=== PATIENT | female | born 1965 | race Caucasian/White ===

== ENCOUNTER 2017-12-17 15:09 | Emergency (ER) | END 2017-12-17 17:08 | disposition home or self-care (01) ==

== ENCOUNTER → 2018-02-26 | Emergency (ER) | payer SELFPAY ==
[~2018-02-26] VITALS: Ht 160 cm; Wt 78.2 kg
[~2018-02-26] MED LIST: D-ME118S24 PO; IBUP-1542 PO; IBUP-1561 PO; KETOROLAC 30 MG INJ IM STA; ONDANSETRON (ODT) 4 MG TAB ODT STA; OSLT75C PO; TYL500 PO
[2018-02-26 15:25] VITALS: BP 168/85; PULSE 98; RESP 18; Ht 160 cm; Wt 78.2 kg
--- NOTE | 2018-02-26 17:54 | ERD ---
ER Documentation Chief Complaint Chief Complaint cough, CWP, congestion, N/V X 4 days HPI 52-year-old female presents for cough, congestion, nausea, vomiting times 4 days. Patient states she vomited couple times. She states that the fever was subjective. The cough is noted to be dry. She tried NyQuil at home without relief. She also admits to some nasal congestion. No other modifying factors noted. ROS All systems reviewed and are negative except as per history of present illness. Medications Home Meds Active Scripts Acetaminophen* (Tylenol*) 500 Mg Tab, 500 MG PO Q4H PRN for MILD PAIN LEVEL 1-3, #30 TAB Prov:PEDRO PABLO RICARDO DO 02/26/18 Ibuprofen* (Motrin*) 600 Mg Tab, 600 MG PO Q6H PRN for PAIN AND OR ELEVATED TEMP, #30 TAB Prov:PEDRO PABLO RICARDO DO 02/26/18 D-Methorphan Hb/P-Epd HCl/Bpm (Swdssmydlm-Mhyllcpmtbs-Id Syr) 118 Ml Syrup, 5 ML PO Q4H PRN for COUGH, #1 BOTTLE Prov:PEDRO PABLO RICARDO 02/26/18 Oseltamivir Phosphate* (Tamiflu*) 75 Mg Capsule, 75 MG PO BID for flu for 5 Days, #10 CAP Prov:PEDRO PABLO RICARDO 02/26/18 Ibuprofen* (Motrin*) 400 Mg Tab, 400 MG PO Q6, #30 TAB Prov:ELVIA POLO PA-C 12/17/17 Allergies Allergies: Coded Allergies: No Known Allergy (Unverified , 12/17/17) PMhx/Soc Hx Alcohol Use: No Hx Substance Use: No Hx Tobacco Use: No Physical Exam Vitals Vital Signs Date Temp Pulse Resp B/P (MAP) Pulse Ox O2 O2 Flow FiO2 Time Delivery Rate 02/26/18 101.2 98 18 168/85 95 15:25 (112) Physical Exam Const: No acute distress Head: Atraumatic Eyes: Normal Conjunctiva ENT: Normal External Ears, Nose and Mouth, no tonsillar exudate or swelling noted. Neck: Full range of motion. No meningismus. Resp: Clear to auscultation bilaterally, no wheezing, rales, rhonchi Cardio: Regular rate and rhythm, no murmurs Skin: No petechiae or rashes Ext: No cyanosis, or edema Neur: Awake and alert Psych: Normal Mood and Affect Results 24 hrs Current Medications Medications Dose Sig/Marilia Start Time Status Last (Trade) Ordered Route PRN Stop Time Admin Dose Reason Admin Ketorolac 30 mg ONCE STAT 02/26/18 DC 02/26/18 Tromethamine IM 16:47 02/26/18 17:06 (Toradol) 16:48 Ondansetron 4 mg ONCE STAT 02/26/18 DC 02/26/18 HCl (Zofran ODT 16:48 02/26/18 17:06 Odt) 16:49 Procedures/MDM Medical Decision Making: Differential diagnosis includes but not limited to upper respiratory infection, pneumonia, sepsis, influenza Patient appeared well on physical examination, nontoxic appearing. Lungs were clear to auscultation bilaterally. There is low suspicion for pneumonia, sepsis.. Patient has for influenza A and B. Influenza A was positive. The patient presented with symptoms for 4 days, she presented with fever of 101.2. Given her age patient will be started on Tamiflu. Patient was given prescription for Motrin, Bromfed, and Tylenol. Patient advised to follow up with PCP in 1-2 days. Patient advised to return to ED for new or worsening symptoms. Patient stable on discharge from the ED. Disclaimer: Inadvertent spelling and grammatical errors are likely due to EHR/dictation software use and do not reflect on the overall quality of patient care. Also, please note that the electronic time recorded on this note does not necessarily reflect the actual time of the patient encounter. Departure Diagnosis: Primary Impression: Influenza Condition: Fair Patient Instructions: Influenza (Adult) Referrals: [facility] YOU HAVE RECEIVED A MEDICAL SCREENING EXAM AND THE RESULTS INDICATE THAT YOU DO NOT HAVE A CONDITION THAT REQUIRES URGENT TREATMENT IN THE EMERGENCY DEPARTMENT. FURTHER EVALUATION AND TREATMENT OF YOUR CONDITION CAN WAIT UNTIL YOU ARE SEEN IN YOUR DOCTORS OFFICE WITHIN THE NEXT 1-2 DAYS. IT IS YOUR RESPONSIBILITY TO MAKE AN APPOINTMENT FOR FOLOW-UP CARE. IF YOU HAVE A PRIMARY DOCTOR --you should call your primary doctor and schedule an appointment IF YOU DO NOT HAVE A PRIMARY DOCTOR YOU CAN CALL OUR PHYSICIAN REFERRAL HOTLINE AT IF YOU CAN NOT AFFORD TO SEE A PHYSICIAN YOU CAN CHOSE FROM THE FOLLOWING [facility] [address] [place]. [facility] [address] [facility] [facility] [address] [facility] [address] [facility] [address] [facility]. [facility] [address] Additional Instructions: Call your primary care doctor TOMORROW for an appointment during the next 1-2 days.See the doctor sooner or return here if your condition worsens before your appointment time. PEDRO PABLO RICARDO DO Feb 26, 2018 17:54
== END | disposition home or self-care (01) ==
LOC: FTE 15:14
DX: J10.1 Influenza due to other identified influenza virus with other respiratory manifestations (principal)
CPT/HCPCS: 87400; 96372; 99284; J1885